=== PATIENT | female | born 1935 | race Caucasian/White ===

== ENCOUNTER 2016-06-24 16:33 | Emergency (ER) | payer MEDICARE ==
[~2016-06-24] VITALS: Ht 168.9 cm; Wt 81.2 kg
[~2016-06-24 16:33] MED LIST: ANAS1TAB3 PO; GABA-585 PO; LISI-334 PO; MULT-18 PO; OMEP20CA9 PO; PRAM0.255 PO; TRAZ150T49 PO; gabapentin; lisinopril; ondansetron; plaquenil PO
--- NOTE | 2016-06-24 16:47 | RAD ---
CT head without contrast History: Code stroke, weakness, facial droopiness. Comparison: None. Procedure: Axial images are obtained of the head from the skull base through the vertex without IV contrast. Findings: The ventricles and sulci are normal for the patient's age. No mass-effect, intracranial mass, midline shift, hemorrhage or obvious acute infarction is identified. Basilar cisterns are patent. Bone windows demonstrate no significant calvarial abnormality. The visualized paranasal sinuses appear clear. Mild bilateral periventricular white matter hypodensities likely chronic small vessel ischemic disease Impression: 1. No acute intracranial process. ER was called at time of dictation at 4:40 PM.. PQRS Compliance Statement: One or more of the following individualized dose reduction techniques were utilized for this examination: 1. Automated exposure control 2. Adjustment of the mA and/or kV according to patient size 3. Use of iterative reconstruction technique
--- NOTE | 2016-06-24 16:49 | RAD ---
EXAM: CHEST 1 VIEW History: Arrhythmia, code stroke COMPARISON: 08/01/2014 TECHNIQUE: Single portable radiograph of the chest FINDINGS: The cardiac silhouette is unremarkable. The lungs are clear bilaterally. The costophrenic sulci are clear and well demarcated. IMPRESSION: No radiographic evidence of an acute cardiopulmonary process.
--- NOTE | 2016-06-24 16:57 | EKG ---
[address] [address] Test Date: 2016-06-24 Test Time: 16:54:30 Pat Name: HAILE MORAN Department: Room: Gender: F Credentialing Coordinator: : 1935 Requested By: ALDO MAKI Order Number: [id number] Reading MD: Leonard Walton Measurements Intervals [place] Rate: 67 P: 42 WA: 170 QRS: 24 QRSD: 80 T: 51 QT: 380 QTc: 404 Interpretive Statements SINUS RHYTHM Electronically Signed On 06-28-2016 14:18:31 CDT by Leonard Walton
--- NOTE | 2016-06-24 17:10 | ED.ADGEN ---
Past History Past Medical History: Hypertension, Pneumonia Past Surgical History: Appendectomy, Hysterectomy, Knee Replacement, Other Alcohol Use: None Drug Use: None Adult General Chief Complaint Chief Complaint Generally weakness, confusion HPI HPI Patient is a 81-year-old female who presents with generalized weakness, fatigue , and possible left-sided facial droop while at dental office prior to ED arrival and prior to any dental procedure. patient's son drove her to the dental office and states the patient appeared mildly agitated and confused earlier today. She also complaining of weakness and took hydrocodone this morning for chronic back and hip pain. Patient denies headache, change in vision , facial numbness, extremity weakness or loss of sensation. Denies fever chills , nausea vomiting and sweats. no dysuria, urinary frequency urgency.Overall, patient just complains of feeling entire and wants to go home to sleep. Additional history obtained from patient's son and EMS. Review of Systems Review of Systems ROS as per HPI. Current Medications Current Medications Current Medications Medications (Trade) Dose Ordered Sig/Johanna Start Time Stop Time Status Last Admin Dose Admin Aspirin (Aspirin Enteric Coated) 162 mg 1X ONCE 06/24/16 17:15 06/24/16 17:16 DC 06/24/16 17:15 162 MG Allergies Allergies Allergies Coded Allergies Type Severity Reaction Last Updated Verified codeine Allergy Intermediate 08/02/14 Yes Physical Exam Physical Exam Constitutional: Mildly agitated, early fatigued and weak appearing. HENT: Normocephalic, atraumatic, bilateral external ears normal, oropharynx moist, no oral exudates, nose normal. Eyes: PERRLA, EOMI, conjunctiva normal. Neck: Normal range of motion, no tenderness. Cardiovascular:Heart rate regular rhythm, no murmur. Lungs & Thorax: Bilateral breath sounds clear to auscultation. Abdomen: Bowel sounds normal, soft, no tenderness. Skin: Warm, dry, no erythema. Back: No tenderness Extremities: No tenderness. Neurologic: Alert and oriented X 3, subtle left facial droop around mouth, cranial nerves II through XII grossly intact, normal motor function, normal sensory function, no focal deficits noted. Psychologic: Affect normal, judgement normal, mood normal. Current Patient Data Vital Signs Vital Signs Date Time Temp Pulse Resp B/P (MAP) Pulse Ox O2 Delivery O2 Flow Rate FiO2 06/24/16 17:22 76 13 134/71 (92) 94 06/24/16 16:33 97.5 Room Air Lab Results Laboratory Tests Test 06/24/16 17:30 White Blood Count 7.3 x10^3/uL (4.0-11.0) Red Blood Count 3.74 x10^6/uL (3.50-5.40) Hemoglobin 10.8 g/dL (12.0-15.5) L Hematocrit 32.1 % (36.0-47.0) L Mean Corpuscular Volume 86 fL (79-100) Mean Corpuscular Hemoglobin 29 pg (25-35) Mean Corpuscular Hemoglobin Concent 34 g/dL (31-37) Red Cell Distribution Width 15.5 % (11.5-14.5) H Platelet Count 209 x10^3/uL (140-400) Neutrophils (%) (Auto) 56 % (31-73) Lymphocytes (%) (Auto) 27 % (24-48) Monocytes (%) (Auto) 12 % (0-9) H Eosinophils (%) (Auto) 4 % (0-3) H Basophils (%) (Auto) 1 % (0-3) Neutrophils # (Auto) 4.1 x10^3uL (1.8-7.7) Lymphocytes # (Auto) 2.0 x10^3/uL (1.0-4.8) Monocytes # (Auto) 0.9 x10^3/uL (0.0-1.1) Eosinophils # (Auto) 0.3 x10^3/uL (0.0-0.7) Basophils # (Auto) 0.1 x10^3/uL (0.0-0.2) Prothrombin Time 9.9 SEC (9.4-11.4) Prothrombin Time INR 1.0 (0.9-1.1) PTT 24 SEC (23-33) Sodium Level 137 mmol/L (136-145) Potassium Level 4.1 mmol/L (3.5-5.1) Chloride Level 103 mmol/L (98-107) Carbon Dioxide Level 26 mmol/L (21-32) Anion Gap 8 (6-14) Blood Urea Nitrogen 30 mg/dL (7-20) H Creatinine 2.0 mg/dL (0.6-1.0) H Estimated GFR (Cockcroft-Gault) 23.9 BUN/Creatinine Ratio 15 (6-20) Glucose Level 106 mg/dL (70-99) H Calcium Level 8.7 mg/dL (8.5-10.1) Total Bilirubin 0.3 mg/dL (0.2-1.0) Aspartate Amino Transferase (AST) 19 U/L (15-37) Alanine Aminotransferase (ALT) 17 U/L (14-59) Alkaline Phosphatase 73 U/L (46-116) Total Protein 6.8 g/dL (6.4-8.2) Albumin 3.5 g/dL (3.4-5.0) Albumin/Globulin Ratio 1.1 (1.0-1.7) EKG EKG [EKG: Normal sinus rhythm, no acute ST-T wave changes.] Radiology/Procedures Radiology/Procedures [Ct head: nonacute.] Course & Med Decision Making Course & Med Decision Making Pertinent Labs and Imaging studies reviewed. (See chart for details) [NIH stroke score of 1. Patient mainly appears fatigued and mildly agitated in the ED. Diagnosis of stroke is uncertain. Will admit to the hospital service for further observation and treatment.] Final Impression Final Impression 1. Facial droop 2. Generalized weakness Problems: Dragon Disclaimer Dragon Disclaimer This electronic medical record was generated, in whole or in part, using a voice recognition dictation system. ALDO MAKI DO June 24, 2016 17:10
[2016-06-24] MEDS ORDERED: ASPIRIN ENTERIC COATED 81 MG TABLET.DR. PO ONE (17:15)
[2016-06-24 17:57] LABS: BASO # 0.1 x10^3/uL (0.0-0.2); BASO % 1 % (0-3); EOS # 0.3 x10^3/uL (0.0-0.7); EOS % 4 % (0-3); HEMATOCRIT 32.1 % (36.0-47.0); HEMOGLOBIN 10.8 g/dL (12.0-15.5); LYMPH % 27 % (24-48); MEAN CORPUSCULAR HEMOGLOBIN 29 pg (25-35); MEAN CORPUSCULAR HGB CONC 34 g/dL (31-37); MEAN CORPUSCULAR VOLUME 86 fL (79-100); MONO # 0.9 x10^3/uL (0.0-1.1); MONO % 12 % (0-9); NEUT # 4.1 x10^3uL (1.8-7.7); NEUT % 56 % (31-73); PLATELET COUNT 209 x10^3/uL (140-400); RED BLOOD COUNT 3.74 x10^6/uL (3.50-5.40); RED CELL DISTRIBUTION WIDTH 15.5 % (11.5-14.5); WHITE BLOOD COUNT 7.3 x10^3/uL (4.0-11.0)
[2016-06-24 18:05] LABS: ALBUMIN 3.5 g/dL (3.4-5.0); ALBUMIN/GLOBULIN RATIO 1.1 (1.0-1.7); CALCIUM 8.7 mg/dL (8.5-10.1); GFR 23.9; POTASSIUM 4.1 mmol/L (3.5-5.1); TOTAL BILIRUBIN 0.3 mg/dL (0.2-1.0); TOTAL PROTEIN 6.8 g/dL (6.4-8.2)
[2016-06-24 18:55] VITALS: BP 152/79
[2016-06-24] MEDS ORDERED: ACETAMINOPHEN 650 MG/20.3 ML SOLUTION. PO PRN (19:45)
[2016-06-24] MEDS ORDERED: MVI, ADULT NO.4 WITH VIT K 10 ML, FOLIC ACID SYRINGE for ER 1 MG, THIAMINE 100 MG in IV... IV ONE ×4 (20:15)
[2016-06-24] MEDS ORDERED: GABA300C8 PO (20:24)
[2016-06-24] MEDS ORDERED: LISI-334 PO (20:24)
[2016-06-24] MEDS ORDERED: OXYC1TAB7 PO (20:24)
[2016-06-24] MEDS ORDERED: oxyCODONE/APAP 5/325 1 TAB TABLET PO PRN (20:45)
[2016-06-24] MEDS ORDERED: GABAPENTIN 300 MG CAPSULE. PO SCH (21:00)
[2016-06-24] MEDS ORDERED: traZODone 150 MG TABLET. PO SCH (21:00)
[2016-06-24 22:48] VITALS: BP 122/70
[2016-06-25 05:03] LABS: BACTERIA,URINE FEW /HPF (0-FEW); BILIRUBIN,URINE NEG (NEG); CLARITY,URINE CLEAR; COLOR,URINE YELLOW; GLUCOSE,URINE NEG (NEG); NITRITE,URINE NEG (NEG); RBC,URINE 0 /HPF (0-2); SQUAMOUS EPITHELIAL CELL,UR OCC /LPF; UROBILINOGEN,URINE 0.2 mg/dL (0.2 mg/dL)
[2016-06-25 05:49] VITALS: BP 123/76
[2016-06-25 06:20] LABS: CALCIUM 8.5 mg/dL (8.5-10.1); CREATININE 1.5 mg/dL (0.6-1.0); GFR 33.3; POTASSIUM 4.7 mmol/L (3.5-5.1)
[2016-06-25 06:27] LABS: BASO # 0.1 x10^3/uL (0.0-0.2); BASO % 1 % (0-3); EOS # 0.4 x10^3/uL (0.0-0.7); EOS % 6 % (0-3); HEMATOCRIT 31.3 % (36.0-47.0); HEMOGLOBIN 10.4 g/dL (12.0-15.5); LYMPH # 1.8 x10^3/uL (1.0-4.8); LYMPH % 31 % (24-48); MEAN CORPUSCULAR HEMOGLOBIN 29 pg (25-35); MEAN CORPUSCULAR HGB CONC 33 g/dL (31-37); MEAN CORPUSCULAR VOLUME 86 fL (79-100); MONO # 0.8 x10^3/uL (0.0-1.1); MONO % 13 % (0-9); NEUT # 2.9 x10^3uL (1.8-7.7); NEUT % 49 % (31-73); PLATELET COUNT 189 x10^3/uL (140-400); RED BLOOD COUNT 3.63 x10^6/uL (3.50-5.40); RED CELL DISTRIBUTION WIDTH 14.8 % (11.5-14.5); WHITE BLOOD COUNT 5.9 x10^3/uL (4.0-11.0)
[2016-06-25] MEDS ORDERED: PANTOPRAZOLE 40 MG TABLET. PO SCH (07:30)
[2016-06-25] MEDS ORDERED: ASPIRIN ENTERIC COATED 325 MG TABLET.DR. PO SCH (08:00)
[2016-06-25] MEDS ORDERED: ANASTROZOLE 1 MG TABLET PO SCH (09:00)
[2016-06-25] MEDS ORDERED: GABAPENTIN 100 MG CAPSULE. PO SCH (09:00)
[2016-06-25] MEDS ORDERED: LISINOPRIL 20 MG TABLET PO SCH (09:00)
[2016-06-25 11:08] VITALS: BP 126/69
--- NOTE | 2016-06-25 11:40 | HP ---
ADMIT DATE: 06/25/2016 REASON FOR ADMISSION: Stroke-like symptoms. HISTORY OF PRESENT ILLNESS: An 81-year-old female who stated that yesterday she did not feel very well. She was very tired. She did have a dental appointment and decided to go to it. Her son drove her there. She still felt tired and the dentist decided not to proceed with any dental procedure. Some question whether there was some left facial drooping at that time. Her son took her out to the car. In the car, she felt like she could not breathe. Staff came from the dental office, gave her some oxygen and she was transported to the hospital. PAST MEDICAL HISTORY: Breast cancer, she is a 5-year survivor; chronic back pain; arthritis; hypertension; GERD. PAST SURGICAL HISTORY: Two surgeries on her back, breast cancer surgery. FAMILY HISTORY: Mother had heart issues, sister has stomach issues. SOCIAL HISTORY: The patient is a . She smoked for a few years starting at age 20 and then quit. Likes to drink beer with her grandchildren, but not to excess. REVIEW OF SYSTEMS: Transient left facial numbness and weakness. Denies any visual problems, fever, sore throat, urinary pain or dysuria, bowel issues. Just fatigue and some low blood pressures at home. ALLERGIES: Codeine. HOME MEDICATIONS: Reviewed and are available on the MAR. OBJECTIVE: VITAL SIGNS: Blood pressure , pulse 70, respirations 20, temperature is 97.8, pulse ox 95% on room air. Height 66.5 inches, weight 179 pounds. GENERAL: Pleasant 81-year-old in no acute distress. HEENT: Her hearing is normal. Her pupils are equal, round, reactive to light. Extraocular muscles were intact. Her nose is patent. Throat was clear. Tongue was midline. NECK: Supple, without adenopathy. There are no carotid bruits. Thyroid is not enlarged. LUNGS: Clear to auscultation. CARDIOVASCULAR: Regular rhythm and rate. ABDOMEN: Soft, nontender. EXTREMITIES: Without edema. NEUROLOGIC: Mental status: She is alert and oriented. Cranial nerves are intact. There is no facial numbness or drooping. No hemianopsia. Kqqzbp-ci-[id number] is intact. Reflexes were 2+/4. Order Runner slightly weaker on the left, but she is right handed. Motor strength is good. LABORATORY DATA: Hemoglobin is 10.4, hematocrit 31.3. Chemistry: BUN was 30, creatinine 2.0 and now 1.5. Urinalysis, this was after hydration; however, specific gravity less than 1.005, 1-4 white cells, trace leukocyte esterase. CT of the head is negative, no intracranial process. ASSESSMENT: 1. Stroke-like symptoms, which appears to have resolved. 2. Hypertension with hypotension, decreased his lisinopril from 40-20. 3. Normochromic normocytic anemia. This will need to be worked up as an outpatient. 4. History of breast cancer, 5 years survivor. 5. Acute kidney injury secondary to volume depletion. This has improved with hydration. PLAN: Neurological consult. Started on aspirin. Carotid Dopplers. PT, OT. GORDON RODRIGUES DO DR: JEANNINE/brenda JOB#: [id number] / [id number]
[2016-06-25 13:58] LABS: THYROID STIM HORMONE (TSH) 3.56 uIU/mL (0.358-3.740)
--- NOTE | 2016-06-25 14:21 | HP ---
ADMIT DATE: 06/25/2016 ADDENDUM About one hour prior to going to the dentist, she had taken 2000 mg of amoxicillin and 1 hour prior to the sensation in the car where she could not breathe and apparently her oxygen may have been a little low. She had felt that numbness on her left side of her face, so possibly this could have been reaction to the amoxicillin. GORDON RODRIGUES DO DR: JEANNINE/brenda JOB#: [id number] / [id number]
--- NOTE | 2016-06-25 14:28 | RAD ---
Exam performed: Carotid Doppler. Clinical indication: Weakness, hypertension Comparison: None available Technique: Grayscale, color-flow 2-D, spectral waveform analysis of the carotid arterial system was performed. Findings: There is minimal intimal thickening and soft atherosclerotic plaque within both carotid bulbs extending into the internal carotid artery bilaterally. Doppler interrogation reveals normal waveforms and velocities as follows . Peak systolic velocity within the right common carotid artery ranges from 62-78 cm/sec whereas on the left ranges from 69-80 cm/sec . The peak systolic velocity within the right ICA ranges from 59-85 cm/sec whereas on the left ranges from 54-135 cm/sec. The ICA to CCA ratio on the right ranges from 0.83-1.81whereas on the left ranges from 0.68-1.69. There is antegrade flow in both vertebral arteries. Impression: 1.Mild plaquing involving both carotid systems without any flow-limiting stenosis. Note: Stenosis calculations for CT, MR and conventional angiography are based upon determination of the distal ICA diameter in accordance with the NASCET methodology. Stenosis calculations for doppler studies are derived from validated velocity criteria which are known to correlate with NASCET methodology of determining stenosis. Ultrasound
[2016-06-25] MEDS ORDERED: ATOR20TA PO (15:28)
[2016-06-25 15:38] VITALS: BP 128/76
[2016-06-25] MEDS ORDERED: ASPI-630 PO (16:13)
[2016-06-25] MEDS ORDERED: ATORVASTATIN CALCIUM 20 MG TABLET PO SCH (21:00)
[2016-06-25] MEDS ORDERED: PRAMIPEXOLE 0.25 MG TABLET. PO SCH (21:00)
[2016-06-26] MEDS ORDERED: LISINOPRIL 20 MG TABLET PO SCH (09:00)
--- NOTE | 2016-06-27 19:39 | DS ---
DATE OF DISCHARGE: 06/25/2016 HOSPITAL COURSE: This is an 81-year-old female who was admitted with possible stroke-like symptoms. In reality these symptoms occurred with the transient acute shortness of breath and chest pain and a left facial numbness after taking 2 grams of amoxicillin an hour prior going to the dentist. When she arrived on the floor basically all of her symptoms had resolved. She was also seen by Dr. Ferro. DISCHARGE DIAGNOSES: 1. Reaction to medication. 2. Left facial weakness. 3. Hypertension. 4. Normochromic normocytic anemia. 5. History of breast cancer. 6. Acute kidney injury secondary to volume depletion, which resolved. DISPOSITION: She will follow up with her own doctor as an outpatient. GORDON RODRIGUES DO DR: JEANNINE/brenda JOB#: [id number] / [id number]
== END 2016-06-25 16:16 | disposition home or self-care (01) ==
LOC: ER 16:33 → 1 SOUTH 17:48
PROVIDERS: ADMIT Family Medicine; ATTEND Family Medicine
DX: I95.2 Hypotension due to drugs (principal); I10 Essential (primary) hypertension; D64.9 Anemia, unspecified; Z85.3 Personal history of malignant neoplasm of breast; E86.9 Volume depletion, unspecified; N17.9 Acute kidney failure, unspecified; K21.9 Gastro-esophageal reflux disease without esophagitis; M19.90 Unspecified osteoarthritis, unspecified site; Z90.49 Acquired absence of other specified parts of digestive tract; Z96.659 Presence of unspecified artificial knee joint
CPT/HCPCS: 36415; 70450; 71010; 80048; 80053; 80061; 81001; 84443; 85027; 85610; 85730; 87086; 93005; 93880; 96374; 97162; 97166; 99285; G0378; G8978; G8979; G0379; J7030

== ENCOUNTER → 2017-03-17 | Outpatient (CLI) | payer MEDICARE ==
[~2017-03-17] MED LIST changes: +ASPI-630 PO; +ATOR20TA PO; +BUPIVACAINE MPF 0.25% 10 ML VIAL. ONE; +DEXAMETHASONE SOD PHOS 4 MG/ML VIAL ONE; +GABA300C8 PO; +IOHEXOL 300 MG/ML 50 ML VIAL. ONE; +LIDOCAINE 1% PF 30 ML VIAL. ONE; +OXYC1TAB7 PO
== END | disposition home or self-care (01) ==
LOC: SURG 09:24
PROVIDERS: ATTEND Anesthesiology Pain Medicine
DX: M54.16 Radiculopathy, lumbar region (principal); K21.9 Gastro-esophageal reflux disease without esophagitis; M19.90 Unspecified osteoarthritis, unspecified site; F32.9 Major depressive disorder, single episode, unspecified; Z87.39 Personal history of other diseases of the musculoskeletal system and connective tissue; Z90.710 Acquired absence of both cervix and uterus; Z87.440 Personal history of urinary (tract) infections; Z87.01 Personal history of pneumonia (recurrent); Z88.6 Allergy status to analgesic agent
CPT/HCPCS: 64483; 99213; J1100; J2001; J3490; Q9967

== ENCOUNTER 2017-04-03 01:22 | Inpatient (IN) | payer MEDICARE ==
[2017-04-03] VITALS (8 sets, daily range): BP systolic 93–184; BP diastolic 53–96
[~2017-04-03] VITALS: Ht 168.9 cm; Wt 82.6 kg
[~2017-04-03 01:22] MED LIST changes: -BUPIVACAINE MPF 0.25% 10 ML VIAL. ONE; -DEXAMETHASONE SOD PHOS 4 MG/ML VIAL ONE; -IOHEXOL 300 MG/ML 50 ML VIAL. ONE; -LIDOCAINE 1% PF 30 ML VIAL. ONE
[2017-04-03] MEDS ORDERED: IPRATRPIUM/ALBUTEROL 0.5/2.5MG 3 ML NEBU. NEB ONE (01:45)
[2017-04-03] MEDS ORDERED: ONDANSETRON PF 4 MG/2 ML VIAL. IV ONE (02:00)
--- NOTE | 2017-04-03 02:05 | PHYS DOC ---
General Chief Complaint: COUGH Stated Complaint: SOA Time Seen by MD: 01:25 Source: patient Exam Limitations: no limitations Problems: History of Present Illness Initial Comments 82-year-old female to ED with cough and shortness of breath. Patient complains of cough 2 days, states symptoms worsened severely this afternoon. She is complaining of chills and sweats difficulty breathing had one episode of emesis in the emergency department. 89% on room air increased to 95% on 2 L she has history of breast cancer survivor 5 years. Timing/Duration: other Severity: severe Modifying Factors: worse with movement, improves with other Associated Symptoms: cough, diaphoresis, fever/chills, headaches, malaise, nausea/vomiting, shortness of breath, other Allergies: Coded Allergies: codeine (Verified Allergy, Intermediate, 08/02/14) Past Medical History Medical History: other (breast cancer 5 years, back pain, hypertension, GERD breast cancer 5 years, back pain, hypertension, GERD) Surgical History: other (2 back surgeries and a breast biopsy) Social History Smoker: quit greater than 1 year Alcohol: occasionally Drugs: none Review of Systems Constitutional: see HPI Respiratory: see HPI Cardiovascular: chest pain, denies palpitations, denies syncope Gastrointestinal: see HPI, denies abdominal pain, denies diarrhea Genitourinary: denies dysuria, denies frequency, denies hematuria Musculoskeletal: muscle pain, denies neck pain Psychiatric/Neurological: headache, denies paresthesia, denies weakness Hematologic/Lymphatic: denies blood clots, denies easy bleeding, denies easy bruising Physical Exam General Appearance: moderate distress (respiratory) Ear, Nose, Throat: hearing grossly normal, normal ENT inspection (dry membranes ), normal pharynx Neck: non-tender, supple Respiratory: other (wheezes and decreased BS b/l, respiratory distress) Cardiovascular: normal peripheral pulses, regular rate, rhythm Gastrointestinal: non tender, soft Extremities: non-tender, no calf tenderness Neurologic/Psychiatric: timber surveyor II-XII nml as tested, no motor/sensory deficits, alert, oriented x 3 Orders, Labs, Meds EKG: sinus tachycardia 104 bpm, no ST segment elevation. Interpreted by me. PATIENT: HAILE MORAN ACCOUNT: [id number] : 1935 LOCATION: ER AGE: 82 SEX: F EXAM STATUS: REG ER ORD. PHYSICIAN: GEETHA MOELLER DO REASON: SOB, h/o breast CA PROCEDURE: CT CHEST WO CONTRAST CT CHEST WO CONTRAST dated 04/03/2017 2:39 AM Indication: Shortness of breath, history of breast cancerSOB, hx of right side breast cancer. Comparison: No comparison is available. Technique: Contiguous axial imaging of the chest performed without the administration of intravenous contrast. One or more of the following individualized dose reduction techniques were utilized for this examination: 1. Automated exposure control 2. Adjustment of the mA and/or kV according to patient size 3. Use of iterative reconstruction technique Findings: Heart size mildly enlarged. No pericardial effusion. Enlarged precarinal lymph node measures 1.1 cm short axis. There are also borderline enlarged right paratracheal lymph nodes measuring up to 1.1 cm short axis. Mild fullness of the bilateral hilum and subcarinal region. No axillary adenopathy. Thyroid gland is unremarkable. Central airways are patent. Mild diffuse bronchial wall thickening. There are 3 noncalcified pulmonary nodules in the right lower lobe on images 54, 58 and 65 that measure up to 5 mm in size each. Patchy groundglass opacity within the bilateral lower lobes, right upper lobe. Small bilateral pleural effusions. Limited images of upper abdomen unremarkable. No acute bony abnormality. Multilevel spondylosis. IMPRESSION: 1. Small noncalcified pulmonary nodules in the right lower lobe, indeterminate. Given the history of breast cancer, metastatic disease cannot be excluded. Follow-up imaging in 3-6 months recommended to ensure stability. 2. Diffuse bronchial wall thickening with patchy groundglass opacity at both lung bases, nonspecific. Consider acute or chronic bronchial inflammatory process and/or mild edema. 3. Mild mediastinal lymphadenopathy, nonspecific. 4. Small bilateral pleural effusions. Electronically signed by: Jonatan Bazan MD (04/03/2017 3:13 AM) [facility] DICTATED AND SIGNED BY: JONATAN BAZAN MD DATE: 04/03/17 0307 CC: MARGI RIVERA MD; GEETHA MOELLER DO ~ Influenza B positive other labs unremarkable Duoneb, tylenol, tamiflu, zofran given in ED. Patient is agreeable to inpatient admission, her PCP Dr Rivera 033: Patient discussed with Dr Ewing who accepts ICU/respiratory isolation admission IMPRESSIONS: Respiratory distress Influenza B Breast cancer Departure Time of Disposition: 03:46 Condition: IMPROVED GEETHA MOELLER DO Apr 03, 2017 02:05
[2017-04-03 02:07] LABS: BASO # 0.1 x10^3/uL (0.0-0.2); BASO % 1 % (0-3); EOS # 0.2 x10^3/uL (0.0-0.7); EOS % 3 % (0-3); HEMATOCRIT 35.4 % (36.0-47.0); HEMOGLOBIN 11.6 g/dL (12.0-15.5); LYMPH # 1.4 x10^3/uL (1.0-4.8); LYMPH % 21 % (24-48); MEAN CORPUSCULAR HEMOGLOBIN 29 pg (25-35); MEAN CORPUSCULAR HGB CONC 33 g/dL (31-37); MEAN CORPUSCULAR VOLUME 87 fL (79-100); MONO # 0.5 x10^3/uL (0.0-1.1); MONO % 7 % (0-9); NEUT # 4.6 x10^3uL (1.8-7.7); NEUT % 68 % (31-73); PLATELET COUNT 185 x10^3/uL (140-400); RED BLOOD COUNT 4.06 x10^6/uL (3.50-5.40); RED CELL DISTRIBUTION WIDTH 16.2 % (11.5-14.5); WHITE BLOOD COUNT 6.8 x10^3/uL (4.0-11.0)
[2017-04-03 02:20] LABS: BACTERIA,URINE 0 /HPF (0-FEW); BILIRUBIN,URINE NEG (NEG); CLARITY,URINE CLEAR; COLOR,URINE YELLOW; GLUCOSE,URINE NEG (NEG); NITRITE,URINE NEG (NEG); RBC,URINE 0 /HPF (0-2); UROBILINOGEN,URINE 0.2 mg/dL (0.2 mg/dL); WBC,URINE 0 /HPF (0-4)
[2017-04-03 02:49] LABS: ALBUMIN 3.5 g/dL (3.4-5.0); ALK PHOS 94 U/L (46-116); ALT (SGPT) < 6 U/L (14-59); ANION GAP 8 (6-14); AST (SGOT) 27 U/L (15-37); BLOOD UREA NITROGEN 18 mg/dL (7-20); BUN/CREATININE RATIO 11 (6-20); CALCIUM 8.6 mg/dL (8.5-10.1); CARBON DIOXIDE 29 mmol/L (21-32); CHLORIDE 104 mmol/L (98-107); CREATININE 1.6 mg/dL (0.6-1.0); GFR 30.9; GLUCOSE 106 mg/dL (70-99); LIPASE 163 U/L (73-393); POTASSIUM 3.9 mmol/L (3.5-5.1); SODIUM 141 mmol/L (136-145); TOTAL BILIRUBIN 0.3 mg/dL (0.2-1.0)
--- NOTE | 2017-04-03 03:17 | RAD ---
CT CHEST WO CONTRAST dated 04/03/2017 2:39 AM Indication: Shortness of breath, history of breast cancerSOB, hx of right side breast cancer. Comparison: No comparison is available. Technique: Contiguous axial imaging of the chest performed without the administration of intravenous contrast. One or more of the following individualized dose reduction techniques were utilized for this examination: 1. Automated exposure control 2. Adjustment of the mA and/or kV according to patient size 3. Use of iterative reconstruction technique Findings: Heart size mildly enlarged. No pericardial effusion. Enlarged precarinal lymph node measures 1.1 cm short axis. There are also borderline enlarged right paratracheal lymph nodes measuring up to 1.1 cm short axis. Mild fullness of the bilateral hilum and subcarinal region. No axillary adenopathy. Thyroid gland is unremarkable. Central airways are patent. Mild diffuse bronchial wall thickening. There are 3 noncalcified pulmonary nodules in the right lower lobe on images 54, 58 and 65 that measure up to 5 mm in size each. Patchy groundglass opacity within the bilateral lower lobes, right upper lobe. Small bilateral pleural effusions. Limited images of upper abdomen unremarkable. No acute bony abnormality. Multilevel spondylosis. IMPRESSION: 1. Small noncalcified pulmonary nodules in the right lower lobe, indeterminate. Given the history of breast cancer, metastatic disease cannot be excluded. Follow-up imaging in 3-6 months recommended to ensure stability. 2. Diffuse bronchial wall thickening with patchy groundglass opacity at both lung bases, nonspecific. Consider acute or chronic bronchial inflammatory process and/or mild edema. 3. Mild mediastinal lymphadenopathy, nonspecific. 4. Small bilateral pleural effusions. Electronically signed by: Jonatan Bazan MD (04/03/2017 3:13 AM) [facility]
[2017-04-03 03:24] LABS: INFLUENZA A PATIENT NEGATIVE (NEGATIVE); INFLUENZA B PATIENT POSITIVE (NEGATIVE)
[2017-04-03] MEDS ORDERED: methylPREDNISolone SOD SUCC PF 125 MG/2 ML VIAL. IV ONE (03:30)
[2017-04-03] MEDS ORDERED: ACETAMINOPHEN 325 MG TABLET PO PRN (03:45)
[2017-04-03] MEDS ORDERED: ACETAMINOPHEN 325 MG TABLET PO ONE (03:45)
[2017-04-03] MEDS ORDERED: ONDANSETRON PF 4 MG/2 ML VIAL. IV PRN (03:45)
[2017-04-03] MEDS ORDERED: OSELTAMIVIR 75 MG CAPSULE PO ONE (03:45)
[2017-04-03] MEDS: IPRATRPIUM/ALBUTEROL 0.5/2.5MG 3 ML NEBU. NEB SCH ×4 (05:37→21:15)
[2017-04-03] MEDS ORDERED: ALBUTEROL SULFATE 2.5 MG/3 ML NEBU. NEB PRN (05:45)
[2017-04-03] MEDS: OSELTAMIVIR 75 MG CAPSULE PO SCH (09:00)
[2017-04-03] MEDS: ENOXAPARIN 30 MG/0.3 ML DISP.SYRIN. SQ SCH (09:00)
--- NOTE | 2017-04-03 09:11 | RAD ---
Indication: Fever, hypoxia. History of right-sided breast cancer. Technique: Portable AP upright chest x-ray Comparison: Previous study from 06/24/2016. Findings: Heart is normal in size. Prominent interstitial opacities are seen in the right lower lung zone. There are scattered areas of subsegmental atelectasis. No pneumothorax or effusion. Visualized bony thorax within normal limits. Impression: Right lower lung zone opacities may suggest pneumonia with subsegmental atelectasis. Although, given history of right-sided breast cancer, lymphangitic carcinomatosis not ruled out. Follow-up imaging after medical therapy recommended to ensure resolution.
[2017-04-03] MEDS ORDERED: ANASTROZOLE 1 MG TABLET PO SCH (09:30)
[2017-04-03] MEDS ORDERED: GABAPENTIN 100 MG CAPSULE. PO SCH (09:30)
[2017-04-03] MEDS: LISINOPRIL 5 MG TABLET. PO SCH (09:30)
[2017-04-03] MEDS: PANTOPRAZOLE 40 MG TABLET. PO SCH (09:45)
[2017-04-03] MEDS: GABAPENTIN 300 MG CAPSULE. PO SCH ×2 (09:45→20:40)
[2017-04-03] MEDS: ASPIRIN 81 MG TAB.CHEW PO SCH (09:46)
--- NOTE | 2017-04-03 10:30 | PDOC1 ---
History of Present Illness Reason for Visit: COugh, weakness History of Present Illness Pt states she started feeling poorly about Weds or this week. She had a cough and just felt weak. Says yesterday she was "heaving" with the cough and had a low-grade fever of 100. In the ER she was diagnosed with Influenza B. She has a hx of breast cancer treated w/ partial mastectomy, radiation, and Anastrazole. She is no longer receiving treatment, and felt to be in remission. She also has a long-standing history of chronic back pain and sees Dr. Geneva Rhodes for pain mgmt. She takes gabapentin daily and oxycodone PRN. She reports her grandson and /baby are coming to visit Tuesday and are supposed to stay with her. She states she feels better than she did yesterday. She denies chest pain or diarrhea. Chief Complaint: COUGH Allergies: Coded Allergies: codeine (Verified Allergy, Intermediate, 08/02/14) Past Medical History Cardiac: HTN, hyperipidemia Pulmonary: COPD Heme/Onc: Cancer (Breast (RIght)) Musculoskeletal: low back pain (Chronic), Osteoarthritis Past Surgical History: Appendectomy, Breast Biopsy, Total knee replacement (x 2 ), Hysterectomy, Other (Back surgery x 2, implanted pain device and subsequent removal) Family History: No pertinent hx Past Social History Smoke: No Alcohol: none Drugs: None Lives: Alone Review of Systems Review Of Systems Fourteen system , review of systems has been reviewed. See HPI for pertinent positives and negative responses, other shultz all other systems are negative, non pertinent or non contributory Constitutional: Fever, Chills, Malaise Eyes: Yes: Blurry vision (chronic, is supposed to have eyelid surgery soon due to droopy eyelids), No: Eye Pain, Loss of vision ENT: No: Ear pain, Nose pain, Mouth pain, Throat pain Respiratory: YES: Cough, Shortness of breath, No: Hemoptysis, Pleuritic Pain Cardiovascular: No: Chest Pain, Palpitations, Orthopnea, Paroxysmal Noc. Dyspnea, Edema, Lt Headedness Gastrointestinal: No: Nausea, Vomiting, Abdominal Pain, Diarrhea, Constipation , Melena, Hematochezia Genitourinary: No: Dysuria, Henaturia Musculoskeletal: No: Muscle Pain, Muscular Weakness SKIN: YES: Warm, Dry, No Rashes Neurological: No: Confusion, Dizziness, Headaches, Memory Loss, Numbness/ Tingling, Seizures, Speech Problems, Tremors Allergies: Coded Allergies: codeine (Verified Allergy, Intermediate, 08/02/14) Medications Current Medications Albuterol/ Ipratropium (Duoneb) 3 ml 1X ONCE NEB Last administered on at 01:53; Start 04/03/17 at 01:45; Stop 04/03/17 at 01:56; Status DC Ondansetron HCl (Zofran) 8 mg 1X ONCE IV Last administered on 04/03/17at 01:51 ; Start 04/03/17 at 02:00; Stop 04/03/17 at 02:01; Status DC Methylprednisolone Sodium Succinate (SOLU-Medrol 125MG VIAL) 125 mg 1X ONCE IV ; Start 04/03/17 at 03:30; Stop 04/03/17 at 03:31; Status DC Oseltamivir Phosphate (Tamiflu) 75 mg 1X ONCE PO Last administered on at 03:45; Start 04/03/17 at 03:45; Stop 04/03/17 at 04:20; Status DC Acetaminophen (Tylenol) 650 mg 1X ONCE PO Last administered on 04/03/17at 03:45 ; Start 04/03/17 at 03:45; Stop 04/03/17 at 04:19; Status DC Ondansetron HCl (Zofran) 4 mg PRN Q4HRS PRN IV NAUSEA/VOMITING; Start 04/03/17 at 03:45; Stop 04/04/17 at 03:44 Acetaminophen (Tylenol) 650 mg PRN Q4HRS PRN PO FEVER Last administered on 04/03at 09:00; Start 04/03/17 at 03:45; Stop 04/04/17 at 03:44 Albuterol/ Ipratropium (Duoneb) 3 ml RTQID NEB Last administered on 04/03/17at 05:37; Start 04/03/17 at 08:00; Stop 04/04/17 at 07:59 Oseltamivir Phosphate (Tamiflu) 75 mg Q24H PO Last administered on 04/03/17at 09 :00; Start 04/03/17 at 09:00; Stop 04/08/17 at 08:59 Enoxaparin Sodium (Lovenox) 30 mg DAILY SQ Last administered on 04/03/17at 09:00 ; Start 04/03/17 at 09:00 Albuterol Sulfate (Ventolin) 2.5 mg PRN Q2HR PRN NEB SHORTNESS OF BREATH; Start 04/03/17 at 05:45 Anastrozole (Arimidex) 1 mg DAILY PO ; Start 04/03/17 at 09:30 Aspirin (Children'S Aspirin) 81 mg DAILY PO Last administered on 04/03/17at 09: 46; Start 04/03/17 at 09:30 Atorvastatin Calcium (Lipitor) 20 mg QHS PO ; Start 04/03/17 at 21:00 Gabapentin (Neurontin) 200 mg DAILY PO ; Start 04/03/17 at 09:30; Stop 04/03/17 at 09:48; Status DC Gabapentin (Neurontin) 300 mg BID PO Last administered on 04/03/17at 09:45; Start 04/03/17 at 09:30 Lisinopril (Prinivil) 5 mg DAILY PO ; Start 04/03/17 at 09:30 Oxycodone/ Acetaminophen (Percocet 5/325) 1 tab PRN Q6HRS PRN PO PAIN; Start at 09:15 Pramipexole Dihydrochloride (miraPEX) 0.5 mg QHS PO ; Start 04/03/17 at 21:00 Trazodone HCl (Desyrel) 150 mg QHS PO ; Start 04/03/17 at 21:00 Pantoprazole Sodium (Protonix) 40 mg DAILYAC PO Last administered on 04/03/17at 09:45; Start 04/03/17 at 09:30 Active Scripts Active Lipitor (Atorvastatin Calcium) 20 Mg Tablet 20 Mg PO QHS Reported Aspirin 81 Mg Tab.chew 81 Mg PO DAILY Gabapentin 300 Mg Capsule 300 Mg PO BID Oxycodone-Acetaminophen 5-325 (Oxycodone Hcl/Acetaminophen) 1 Each Tablet 1 Tab PO PRN Q6HRS Lisinopril 20 Mg Tablet 5 Mg PO QHS Trazodone Hcl 150 Mg Tablet 1 Tab PO QHS Mirapex (Pramipexole Di-Hcl) 0.25 Mg Tablet 0.5 Mg PO HS Omeprazole 20 Mg Capsule.dr 40 Mg PO DAILY Daily Vitamin (Multivitamin) 1 Each Tablet 1 Each PO Exam Vital Signs Vital Signs Date Time Temp Pulse Resp B/P (MAP) Pulse Ox O2 Delivery O2 Flow Rate FiO2 04/03/17 09:13 99.1 95 20 138/75 (96) 96 Nasal Cannula 0.5 General Appearance: Alert, Oriented X3, Cooperative, No acute distress HEENT: Atraumatic, PERRLA, EOMI, Mucous membr. moist/pink, Other (Neck supple, no JVD< no LAD, no carotid bruits) Respiratory: Other (COarse breath sounds in both lung bases. NO wheezes or rales. Resp effort is normal and symmetric.) Heart: Regular rate, Normal S1, Normal S2, No murmurs Abdominal: Normal bowel sounds, Soft, No tenderness, No hepatospenomegaly, No masses Extremities: No edema (Trace), Normal pulses, No tenderness/swelling Skin: No rashes, No breakdown Neuro: Normal speech, Strength at 5/5 X4 ext, Normal tone, Sensation intact, Cranial nerves 3-12 NL, Reflexes 2+ Psych/Mental Status: Mental status NL, Mood NL Assessment/Plan Assessment/Plan 1. Hypoxemia due to Influenza B respiratory infection: Pt on isolation, treated w/ O2 and Tamiflu. Improving. Monitor for signs of pneumonia. Fever curve mild at this point. 2. CKD: Baseline creat unknown, currently 1.6. Will repeat in AM. 3. Breast cancer, hx of: CT chest showed some tiny nodules w/ mild LAD. Could be reactive w/ granulomas, but recommend short-term f/u CT in 3 months to clarify stability. Pt and her son v/u. Pt reports she has not had a scan in the past few years. 4. Chronic low back pain: Continue home medications. 5. DVT proph: Lovenox. 6. Disp: Expect 2 MN stay due to complexity and severity of illness. Will downgrade to non-ICU status today. Pt advised that she could shed the virus several days after resolution of symptoms, and she should consider making other arrangements for her grandson and family to stay. COURSE Allergies Coded Allergies Type Severity Reaction Last Updated Verified codeine Allergy Intermediate 08/02/14 Yes Laboratory Tests Test 04/03/17 01:40 04/03/17 02:21 04/03/17 06:43 White Blood Count 6.8 x10^3/uL (4.0-11.0) Red Blood Count 4.06 x10^6/uL (3.50-5.40) Hemoglobin 11.6 g/dL (12.0-15.5) Hematocrit 35.4 % (36.0-47.0) Mean Corpuscular Volume 87 fL (79-100) Mean Corpuscular Hemoglobin 29 pg (25-35) Mean Corpuscular Hemoglobin Concent 33 g/dL (31-37) Red Cell Distribution Width 16.2 % (11.5-14.5) Platelet Count 185 x10^3/uL (140-400) Neutrophils (%) (Auto) 68 % (31-73) Lymphocytes (%) (Auto) 21 % (24-48) Monocytes (%) (Auto) 7 % (0-9) Eosinophils (%) (Auto) 3 % (0-3) Basophils (%) (Auto) 1 % (0-3) Neutrophils # (Auto) 4.6 x10^3uL (1.8-7.7) Lymphocytes # (Auto) 1.4 x10^3/uL (1.0-4.8) Monocytes # (Auto) 0.5 x10^3/uL (0.0-1.1) Eosinophils # (Auto) 0.2 x10^3/uL (0.0-0.7) Basophils # (Auto) 0.1 x10^3/uL (0.0-0.2) Urine Collection Type Void Urine Color Yellow Urine Clarity Clear Urine pH 6.0 Urine Specific [place] 1.020 Urine Protein Neg (NEG-TRACE) Urine Glucose (UA) Neg mg/dL (NEG) Urine Ketones (Stick) Neg mg/dL (NEG) Urine Blood Trace (NEG) Urine Nitrite Neg (NEG) Urine Bilirubin Neg (NEG) Urine Urobilinogen Dipstick 0.2 mg/dL (0.2 mg/dL) Urine Leukocyte Esterase Neg (NEG) Urine RBC 0 /HPF (0-2) Urine WBC 0 /HPF (0-4) Urine Squamous Epithelial Cells None /LPF Urine Bacteria 0 /HPF (0-FEW) Sodium Level 141 mmol/L (136-145) Potassium Level 3.9 mmol/L (3.5-5.1) Chloride Level 104 mmol/L (98-107) Carbon Dioxide Level 29 mmol/L (21-32) Anion Gap 8 (6-14) Blood Urea Nitrogen 18 mg/dL (7-20) Creatinine 1.6 mg/dL (0.6-1.0) Estimated GFR (Cockcroft-Gault) 30.9 BUN/Creatinine Ratio 11 (6-20) Glucose Level 106 mg/dL (70-99) Calcium Level 8.6 mg/dL (8.5-10.1) Total Bilirubin 0.3 mg/dL (0.2-1.0) Aspartate Amino Transf (AST/SGOT) 27 U/L (15-37) Alanine Aminotransferase (ALT/SGPT) < 6 U/L (14-59) Alkaline Phosphatase 94 U/L (46-116) Creatine Kinase 49 U/L (26-192) Troponin I Quantitative < 0.017 ng/mL (0-0.055) 0.020 ng/mL (0-0.055) Total Protein 7.0 g/dL (6.4-8.2) Albumin 3.5 g/dL (3.4-5.0) Albumin/Globulin Ratio 1.0 (1.0-1.7) Lipase 163 U/L (73-393) Influenza Type A (Rapid) Negative (NEGATIVE) Influenza Type B (Rapid) Positive (NEGATIVE) UR-Zot-R-Type Natriuretic Peptide 1782 pg/mL (0-449) Current Medications Medications (Trade) Dose Ordered Sig/Johanna Route PRN Reason Start Time Stop Time Status Last Admin Dose Admin Albuterol/ Ipratropium (Duoneb) 3 ml 1X ONCE NEB 04/03/17 01:45 04/03/17 01:56 DC 04/03/17 01:53 Ondansetron HCl (Zofran) 8 mg 1X ONCE IV 04/03/17 02:00 04/03/17 02:01 DC 04/03/17 01:51 Methylprednisolone Sodium Succinate (SOLU-Medrol 125MG VIAL) 125 mg 1X ONCE IV 04/03/17 03:30 04/03/17 03:31 DC Oseltamivir Phosphate (Tamiflu) 75 mg 1X ONCE PO 04/03/17 03:45 04/03/17 04:20 DC 04/03/17 03:45 Acetaminophen (Tylenol) 650 mg 1X ONCE PO 04/03/17 03:45 04/03/17 04:19 DC 04/03/17 03:45 Ondansetron HCl (Zofran) 4 mg PRN Q4HRS PRN IV NAUSEA/VOMITING 04/03/17 03:45 04/04/17 03:44 Acetaminophen (Tylenol) 650 mg PRN Q4HRS PRN PO FEVER 04/03/17 03:45 04/04/17 03:44 04/03/17 09:00 Albuterol/ Ipratropium (Duoneb) 3 ml RTQID NEB 04/03/17 08:00 04/04/17 07:59 04/03/17 05:37 Oseltamivir Phosphate (Tamiflu) 75 mg Q24H PO 04/03/17 09:00 04/08/17 08:59 04/03/17 09:00 Enoxaparin Sodium (Lovenox) 30 mg DAILY SQ 04/03/17 09:00 04/03/17 09:00 Albuterol Sulfate (Ventolin) 2.5 mg PRN Q2HR PRN NEB SHORTNESS OF BREATH 04/03/17 05:45 Anastrozole (Arimidex) 1 mg DAILY PO 04/03/17 09:30 Aspirin (Children'S Aspirin) 81 mg DAILY PO 04/03/17 09:30 04/03/17 09:46 Atorvastatin Calcium (Lipitor) 20 mg QHS PO 04/03/17 21:00 Gabapentin (Neurontin) 200 mg DAILY PO 04/03/17 09:30 04/03/17 09:48 DC Gabapentin (Neurontin) 300 mg BID PO 04/03/17 09:30 04/03/17 09:45 Lisinopril (Prinivil) 5 mg DAILY PO 04/03/17 09:30 Oxycodone/ Acetaminophen (Percocet 5/325) 1 tab PRN Q6HRS PRN PO PAIN 04/03/17 09:15 Pramipexole Dihydrochloride (miraPEX) 0.5 mg QHS PO 04/03/17 21:00 Trazodone HCl (Desyrel) 150 mg QHS PO 04/03/17 21:00 Pantoprazole Sodium (Protonix) 40 mg DAILYAC PO 04/03/17 09:30 04/03/17 09:45 Vital Signs Date Time Temp Pulse Resp B/P (MAP) Pulse Ox O2 Delivery O2 Flow Rate FiO2 04/03/17 09:13 99.1 95 20 138/75 (96) [address] CHEST WO CONTRAST dated 04/03/2017 2:39 AM Indication: Shortness of breath, history of breast cancerSOB, hx of right side breast cancer. Comparison: No comparison is available. Technique: Contiguous axial imaging of the chest performed without the administration of intravenous contrast. One or more of the following individualized dose reduction techniques were utilized for this examination: 1. Automated exposure control 2. Adjustment of the mA and/or kV according to patient size 3. Use of iterative reconstruction technique Findings: Heart size mildly enlarged. No pericardial effusion. Enlarged precarinal lymph node measures 1.1 cm short axis. There are also borderline enlarged right paratracheal lymph nodes measuring up to 1.1 cm short axis. Mild fullness of the bilateral hilum and subcarinal region. No axillary adenopathy. Thyroid gland is unremarkable. Central airways are patent. Mild diffuse bronchial wall thickening. There are 3 noncalcified pulmonary nodules in the right lower lobe on images 54, 58 and 65 that measure up to 5 mm in size each. Patchy groundglass opacity within the bilateral lower lobes, right upper lobe. Small bilateral pleural effusions. Limited images of upper abdomen unremarkable. No acute bony abnormality. Multilevel spondylosis. IMPRESSION: 1. Small noncalcified pulmonary nodules in the right lower lobe, indeterminate. Given the history of breast cancer, metastatic disease cannot be excluded. Follow-up imaging in 3-6 months recommended to ensure stability. 2. Diffuse bronchial wall thickening with patchy groundglass opacity at both lung bases, nonspecific. Consider acute or chronic bronchial inflammatory process and/or mild edema. 3. Mild mediastinal lymphadenopathy, nonspecific. 4. Small bilateral pleural effusions. TONIE SHAH MD Apr 03, 2017 10:29
[2017-04-03] MEDS: oxyCODONE/APAP 5/325 1 TAB TABLET PO PRN ×3 (10:33→20:25)
[2017-04-03] MEDS: ATORVASTATIN CALCIUM 20 MG TABLET PO SCH (20:39)
[2017-04-03] MEDS: PRAMIPEXOLE 0.5 MG TABLET. PO SCH (20:40)
[2017-04-03] MEDS: traZODone 150 MG TABLET. PO SCH (20:40)
[2017-04-04] MEDS: IPRATRPIUM/ALBUTEROL 0.5/2.5MG 3 ML NEBU. NEB SCH (05:01)
[2017-04-04 06:28] VITALS: BP 115/62
[2017-04-04] MEDS: LISINOPRIL 5 MG TABLET. PO SCH (08:48)
[2017-04-04] MEDS: ASPIRIN 81 MG TAB.CHEW PO SCH (08:48)
[2017-04-04] MEDS: GABAPENTIN 300 MG CAPSULE. PO SCH ×2 (08:48→21:00)
[2017-04-04] MEDS: PANTOPRAZOLE 40 MG TABLET. PO SCH (08:48)
[2017-04-04] MEDS: OSELTAMIVIR 75 MG CAPSULE PO SCH (08:48)
[2017-04-04] MEDS: ENOXAPARIN 30 MG/0.3 ML DISP.SYRIN. SQ SCH (08:49)
[2017-04-04 09:01] LABS: BASO % 0 % (0-3); EOS # 0.1 x10^3/uL (0.0-0.7); EOS % 1 % (0-3); HEMATOCRIT 33.7 % (36.0-47.0); HEMOGLOBIN 10.9 g/dL (12.0-15.5); LYMPH # 1.4 x10^3/uL (1.0-4.8); LYMPH % 18 % (24-48); MEAN CORPUSCULAR HEMOGLOBIN 28 pg (25-35); MEAN CORPUSCULAR HGB CONC 33 g/dL (31-37); MEAN CORPUSCULAR VOLUME 87 fL (79-100); MONO # 0.6 x10^3/uL (0.0-1.1); MONO % 8 % (0-9); NEUT # 5.4 x10^3uL (1.8-7.7); NEUT % 72 % (31-73); PLATELET COUNT 160 x10^3/uL (140-400); RED BLOOD COUNT 3.88 x10^6/uL (3.50-5.40); RED CELL DISTRIBUTION WIDTH 16.1 % (11.5-14.5); WHITE BLOOD COUNT 7.5 x10^3/uL (4.0-11.0)
[2017-04-04 09:16] LABS: CALCIUM 8.1 mg/dL (8.5-10.1); CREATININE 1.6 mg/dL (0.6-1.0); GFR 30.9; POTASSIUM 4.5 mmol/L (3.5-5.1)
[2017-04-04 13:00] VITALS: BP 126/63
[2017-04-04] MEDS: AZITHROMYCIN 250 MG TABLET. PO SCH (18:08)
[2017-04-04] MEDS: cefTRIAXone IV Push 1 GM VIAL. IVP SCH (18:09)
[2017-04-04 20:07] VITALS: BP 129/69
[2017-04-04] MEDS: traZODone 150 MG TABLET. PO SCH (21:00)
[2017-04-04] MEDS: oxyCODONE/APAP 5/325 1 TAB TABLET PO PRN (21:00)
[2017-04-04] MEDS: PRAMIPEXOLE 0.5 MG TABLET. PO SCH (21:00)
[2017-04-04] MEDS: ATORVASTATIN CALCIUM 20 MG TABLET PO SCH (21:00)
[2017-04-04 22:29] VITALS: BP 106/68
[2017-04-05 05:20] VITALS: BP 151/76
[2017-04-05 07:11] LABS: HEMATOCRIT 32.4 % (36.0-47.0); HEMOGLOBIN 10.7 g/dL (12.0-15.5); RED BLOOD COUNT 3.76 x10^6/uL (3.50-5.40); RED CELL DISTRIBUTION WIDTH 15.9 % (11.5-14.5); WHITE BLOOD COUNT 6.9 x10^3/uL (4.0-11.0)
[2017-04-05 07:30] LABS: ALBUMIN 2.8 g/dL (3.4-5.0); ALBUMIN/GLOBULIN RATIO 0.8 (1.0-1.7); CALCIUM 8.4 mg/dL (8.5-10.1); CREATININE 1.3 mg/dL (0.6-1.0); GFR 39.2; POTASSIUM 4.3 mmol/L (3.5-5.1); TOTAL BILIRUBIN 0.2 mg/dL (0.2-1.0); TOTAL PROTEIN 6.3 g/dL (6.4-8.2)
--- NOTE | 2017-04-05 08:19 | PN ---
DATE: 04/04/2017 SUBJECTIVE: The patient is resting slightly propped up in bed, continued to be tachypneic, has recurrent cough. She continued to require oxygen, although her oxygen requirement is getting less. She is now on only 1 L of oxygen, taking her oxygen saturation to 95%. Denied any chest pain. OBJECTIVE: GENERAL: When I examined her, she was somewhat pale, but no jaundice, cyanosis, lymphadenopathy or thyromegaly. No jugular venous distension. No limb edema. VITAL SIGNS: Her heart rate was 72, blood pressure 126/63, temperature was 98.3, respiratory rate was 18 and oxygen saturation was 95% on 1 liter of oxygen by nasal cannula. HEAD, EYES, EARS, NOSE, NOSE: Normocephalic, atraumatic. NECK: Supple. HEART: Showed normal first and second heart sounds with no gallop, rub or murmur. CHEST: Clear to auscultation. No crepitation or rhonchi. ABDOMEN: Distended, soft, nontender. No guarding or rigidity. No organomegaly. Hernial orifice intact. Bowel sounds normal. NEUROLOGIC: She is awake, alert, responding appropriately. Cranial nerves intact. She moves extremities without difficulty. Her intake over the last 24 hours was 1300, no output was recorded. LABORATORY DATA: Showed a white cell count to be 7500, hemoglobin 11, hematocrit 33, MCV 87, and platelet count of 160,000. Her chemistry showed a serum sodium 137, potassium 4.5, chloride 102, bicarbonate 30, anion gap of 5, BUN 21, creatinine 1.6, estimated GFR was 30 mL per minute. Her glucose was 88, calcium was 8.1. So far, her urinalysis was unremarkable. Nasal screen for MRSA by PCR was negative and influenza B was positive. RADIOLOGICAL DATA: She apparently had a chest x-ray, which showed that she has right lower lung zone opacity, ____ as pneumonia with subsegmental atelectasis, although given history of right-sided breast cancer lymphangitic carcinomatosis not ruled out. Followup imaging after medical treatment is recommended to ensure resolution. She also had a CT scan of the chest without contrast, which showed that small noncalcified pulmonary nodules in the right lower lobe, indeterminate given the history of breast cancer, metastatic disease cannot be excluded. She has also diffuse bronchial wall thickening and patchy ground glass opacities at both lung bases, nonspecific. Further acute on chronic bronchial inflammatory process and/or mild edema, mild mediastinal lymphadenopathy, nonspecific small bilateral pleural effusion. PLAN: To continue with Tamiflu. I would definitely add Rocephin and repeat all her lab work tomorrow. HILDA MEJIA MD DR: GODFREY/brenda JOB#: [id number] / [id number]
[2017-04-05] MEDS: OSELTAMIVIR 75 MG CAPSULE PO SCH (08:20)
[2017-04-05] MEDS: PANTOPRAZOLE 40 MG TABLET. PO SCH (08:21)
[2017-04-05] MEDS: GABAPENTIN 300 MG CAPSULE. PO SCH (08:21)
[2017-04-05] MEDS: ASPIRIN 81 MG TAB.CHEW PO SCH (08:21)
[2017-04-05] MEDS: LISINOPRIL 5 MG TABLET. PO SCH (08:21)
[2017-04-05] MEDS: AZITHROMYCIN 250 MG TABLET. PO SCH (08:21)
[2017-04-05] MEDS: ENOXAPARIN 30 MG/0.3 ML DISP.SYRIN. SQ SCH (08:22)
[2017-04-05] MEDS ORDERED: POLYETHYLENE GLYCOL 3350 17 GM PACKET. PO SCH (09:00)
[2017-04-05 10:40] VITALS: BP 117/72
[2017-04-05] MEDS: oxyCODONE/APAP 5/325 1 TAB TABLET PO PRN (10:48)
[2017-04-05] MEDS ORDERED: LACTOBACILLUS RHAMNOSUS GG 1 CAPSULE. PO SCH (12:00)
[2017-04-05 15:01] VITALS: BP 129/68
[2017-04-05] MEDS ORDERED: OSEL75CA PO (16:25)
[2017-04-05] MEDS ORDERED: CEFP200T PO (16:25)
[2017-04-05] MEDS ORDERED: AZIT250T PO (16:25)
[2017-04-05] MEDS: cefTRIAXone IV Push 1 GM VIAL. IVP SCH (17:29)
--- NOTE | 2017-04-06 02:24 | DS ---
DATE OF DISCHARGE: 04/05/2017 HISTORY OF PRESENT ILLNESS: The patient is an 82-year-old female patient who was admitted with basically feeling poorly, cough. She was heaving with cough and she has low grade fever and she was diagnosed with influenza B. She is known to have breast cancer, treated with partial mastectomy, radiation and anastrozole. She is no longer receiving any treatment and stated that she was told that she is in remission. She has longstanding history of chronic back pain. She is also known to have COPD, and basically, she was started on Tamiflu 75 mg once a day as she has impaired kidney function, and we started also on ceftriaxone and Zithromax. She was noted to be hypoxic and was requiring 3 liters of oxygen. Did 6-minute walk and basically she was clearly hypoxic and was discharged home on home oxygen and to continue treatment with Tamiflu, Zithromax and ceftriaxone. Her CT scan and chest x-ray, both were mentioning that there is possibility that the patient might have metastatic disease as she has small noncalcified pulmonary nodules in the right lower lobe indeterminate, and given her history of breast cancer, metastatic disease cannot be excluded. A chest x-ray also mention that the patient has right lower zone opacities, may suggest pneumonia with subsequent atelectasis, although given history of right-sided breast cancer, lymphangitic carcinomatosis cannot be ruled out. The patient was advised to follow with her oncologist after she finished treatment of antibiotic. PHYSICAL EXAMINATION: GENERAL: When I saw her today, she looked well and was clearly in no apparent respiratory distress, pale, but no jaundice, cyanosis or thyromegaly. No jugular venous distention. No limb edema. VITAL SIGNS: Her heart rate was 66, blood pressure 129/68, temperature was 98, respiratory rate 24, and oxygen saturation was 96% on 1 liter of oxygen. HEAD, EYES, EARS, NOSE AND THROAT: Showed normocephalic, atraumatic. NECK: Supple. HEART: Showed normal first and second sounds. No gallop, rub or murmur. CHEST: Shows central trachea, equally reduced expansion, decreased air entry, vesicular sounds. I could not really appreciate any crepitation or rhonchi. ABDOMEN: Distended, soft, nontender. NEUROLOGIC: She is awake, alert, responding appropriately. Cranial nerves intact. She moves extremities without difficulty. She ambulates without assistance or assistive devices. LABORATORY DATA: Her lab work this morning showed a white cell count 6900, hemoglobin 11, hematocrit 32, MCV 86 and platelet count 258,000. Her chemistry showed a serum sodium 139, potassium 4.3, chloride 104, bicarbonate 29, anion gap of 19, BUN 1.3, estimated GFR was 39 mL per minute. Her glucose was 120, calcium was 8.4. Total bilirubin, AST, ALT, alkaline phosphatase were normal. Her total protein was 6.3, albumin 2.8. DISCHARGE MEDICATIONS: She was discharged home to continue on aspirin ____ mg once a day, atorvastatin calcium 20 mg at bedtime, gabapentin 300 mg twice a day, lisinopril 20 mg at bedtime, multivitamin 1 tablet once a day, omeprazole 40 mg once a day, oxycodone/APAP 5/325 one tablet every 6 hours. She is on Mirapex 0.5 mg at bedtime, trazodone 150 mg once a day. She was also discharged on Tamiflu 75 mg once a day for 3 days, Vantin 100 mg twice a day for 7 days and Zithromax 250 mg once a day for 7 days. FINAL DISCHARGE DIAGNOSES: Influenza B, community-acquired pneumonia, acute hypoxic respiratory failure, chronic obstructive pulmonary disease exacerbation/bronchial asthma, acute kidney injury on chronic kidney disease, severe protein-calorie malnutrition. Her serum albumin is only 2.8 mg/dL. Breast cancer treated with a mastectomy, radiation treatment and anastrozole. CT scan and x-ray are suggestive of possible metastases, and therefore, we recommended the patient should follow with her oncologist after she finished antibiotic treatment. HILDA MEJIA MD DR: GODFREY/brenda JOB#: [id number] / [id number]
== END 2017-04-05 18:50 | disposition home or self-care (01) | DRG 682 ==
LOC: ER 01:22 → ICU 03:55 → 1 SOUTH 15:35
PROVIDERS: ADMIT Family Medicine; ATTEND Family Medicine
DX: N17.9 Acute kidney failure, unspecified (principal); J10.00 Influenza due to other identified influenza virus with unspecified type of pneumonia; E43 Unspecified severe protein-calorie malnutrition; J96.01 Acute respiratory failure with hypoxia; J18.9 Pneumonia, unspecified organism; J44.0 Chronic obstructive pulmonary disease with (acute) lower respiratory infection; J44.1 Chronic obstructive pulmonary disease with (acute) exacerbation; G89.29 Other chronic pain; I12.9 Hypertensive chronic kidney disease with stage 1 through stage 4 chronic kidney disease, or unspecified chronic kidney disease; K21.9 Gastro-esophageal reflux disease without esophagitis; N18.9 Chronic kidney disease, unspecified; Z85.3 Personal history of malignant neoplasm of breast; Z87.891 Personal history of nicotine dependence; Z90.710 Acquired absence of both cervix and uterus; Z88.8 Allergy status to other drugs, medicaments and biological substances; Z68.28 Body mass index [BMI] 28.0-28.9, adult; Z90.11 Acquired absence of right breast and nipple; Z92.3 Personal history of irradiation; Z90.49 Acquired absence of other specified parts of digestive tract
CPT/HCPCS: 36415; 71045; 71250; 80048; 80053; 81001; 82550; 83690; 83880; 84484; 85025; 85027; 87641; 87804; 94618; 94640; 96374; J0456; J0696; J1650; J2405; J7613; J7620; 99285-25

== ENCOUNTER → 2017-08-19 | Outpatient (CLI) | payer MEDICARE ==
[~2017-08-19] MED LIST changes: +AZIT250T PO; +BUPIVACAINE MPF 0.25% 10 ML VIAL. ONE; +CEFP200T PO; +IOHEXOL 300 MG/ML 50 ML VIAL. ONE; +LIDOCAINE 1% PF 30 ML VIAL. ONE; +OSEL75CA PO; +methylPREDNISolone ACETATE 40 MG/ML VIAL. ONE; +methylPREDNISolone ACETATE 80 MG/ML VIAL. ONE
== END ==
LOC: SURG 11:12
PROVIDERS: ATTEND Anesthesiology Pain Medicine
DX: M46.1 Sacroiliitis, not elsewhere classified (principal); M53.3 Sacrococcygeal disorders, not elsewhere classified; Z88.5 Allergy status to narcotic agent
CPT/HCPCS: G0260; J1030; J2001; J3490; Q9967; 27096; J1040

== ENCOUNTER → 2018-01-12 | Outpatient (CLI) | payer MEDICARE ==
[~2018-01-12] MED LIST changes: -ANAS1TAB3 PO; +ANAS1TAB47 PO; -BUPIVACAINE MPF 0.25% 10 ML VIAL. ONE; -IOHEXOL 300 MG/ML 50 ML VIAL. ONE; -LIDOCAINE 1% PF 30 ML VIAL. ONE; -methylPREDNISolone ACETATE 40 MG/ML VIAL. ONE; -methylPREDNISolone ACETATE 80 MG/ML VIAL. ONE
--- NOTE | 2018-01-12 18:25 | RAD ---
CT CHEST WO CONTRAST Indication: 6 MONTH LUNG NODULE F/U. HX OF RIGHT SIDE BREAST CANCER Exposure: One or more of the following individualized dose reduction techniques were utilized for this examination: 1. Automated exposure control 2. Adjustment of the mA and/or kV according to patient size 3. Use of iterative reconstruction technique. Comparison: April 03, 2017 Contrast: None FINDINGS: Vascular structures: Limited exam without contrast. Aorta mildly calcified without gross aneurysm. Aorta is ectatic. Lymph nodes: Mildly enlarged precarinal lymph nodes are stable. Thyroid gland:Visualized aspect is unremarkable. Heart: No significant pericadial effusion. Esophagus: Unremarkable Pleural spaces: No significant effusion Lungs: Small right lower lobe pulmonary nodule, image 206 is stable. The other previously seen right lower lobe nodules are no longer evident no new pulmonary mass is identified. There is some increased markings in the lower lungs, appear also on the prior study. No dense airspace consolidation. Trachea and central airways: Patent Spine: Degenerative spondylosis. Bones: No destructive process Upper abdomen: Slices obtained through the upper most abdomen are limited by the noncontrast technique. No obvious acute findings. Impression: 1. Small right lower lobe pulmonary nodule stable. The other previously seen nodules in the right lower lobe are not visualized on today's study. 2. Mild mediastinal lymph node enlargement, appears similar. 3. No new acute findings are identified. Electronically signed by: Jonatan Wilhelm MD (01/12/2018 6:22 PM) [id number]
== END | disposition home or self-care (01) ==
LOC: CT 11:47
PROVIDERS: ATTEND Radiology Radiation Oncology
DX: R91.1 Solitary pulmonary nodule (principal); R59.0 Localized enlarged lymph nodes; M47.894 Other spondylosis, thoracic region; Z85.3 Personal history of malignant neoplasm of breast
CPT/HCPCS: 71250

== ENCOUNTER → 2019-01-10 | Outpatient (CLI) | payer MEDICARE ==
[~2019-01-10] MED LIST changes: +0.9 % SODIUM CHLORIDE 10 ML VIAL ONE; +HYDR-2155 PO; +IOHEXOL 300 MG/ML 50 ML VIAL. ONE; +LIDOCAINE 1% PF 30 ML VIAL. ONE; +OMEP20CA16 PO; -OMEP20CA9 PO; +methylPREDNISolone ACETATE 80 MG/ML VIAL. ONE
[2019-01-10 11:46] VITALS: BP 129/73
== END ==
LOC: SURG 10:48
PROVIDERS: ATTEND Anesthesiology Pain Medicine
DX: M54.16 Radiculopathy, lumbar region (principal); K21.9 Gastro-esophageal reflux disease without esophagitis; Z87.39 Personal history of other diseases of the musculoskeletal system and connective tissue
CPT/HCPCS: 62323; J1040; J2001; Q9967; 62321

== ENCOUNTER → 2019-04-12 | Outpatient (CLI) | payer MEDICARE ==
[2019-01-10 11:46] VITALS: BP 129/73
[~2019-04-12] MED LIST changes: -0.9 % SODIUM CHLORIDE 10 ML VIAL ONE; -IOHEXOL 300 MG/ML 50 ML VIAL. ONE; -LIDOCAINE 1% PF 30 ML VIAL. ONE; -methylPREDNISolone ACETATE 80 MG/ML VIAL. ONE
--- NOTE | 2019-04-12 17:35 | RAD ---
PROCEDURE: SHOULDER 2+V LEFT STUDY DATE: 04/12/2019 CLINICAL INDICATION / HISTORY: Left shoulder pain. TECHNIQUE: AP internal and external rotation views with a Y- view were obtained. COMPARISON: None FINDINGS: No fracture, dislocation or bone destruction is identified. There are moderate degenerative changes at the left AC joint. Osteophytic spurring is also evident at the inferior humeral head and along the glenoid rim. No calcifications are seen in relation to the rotator cuff insertion. IMPRESSION: Degenerative changes in the left shoulder involving both the glenohumeral and acromioclavicular joints. No fracture, dislocation or aggressive osseous lesions seen. Electronically signed by: Miki Asher MD (04/12/2019 5:32 PM) [id number]
== END | disposition home or self-care (01) ==
LOC: DXRAD 16:24
PROVIDERS: ATTEND Family Medicine
DX: M19.012 Primary osteoarthritis, left shoulder (principal); M25.712 Osteophyte, left shoulder; M75.82 Other shoulder lesions, left shoulder
CPT/HCPCS: 73030

== ENCOUNTER → 2019-07-16 | Outpatient (CLI) | payer MEDICARE ==
[2019-01-10 11:46] VITALS: BP 129/73
--- NOTE | 2019-07-16 13:23 | RAD ---
EXAM: ULTRASOUND THYROID CLINICAL HISTORY: Reason: THYROID NODULE / Spl. Instructions: / History: COMPARISON: None available. TECHNIQUE: Ultrasound examination of the thyroid gland was performed FINDINGS: The right thyroid lobe measures 3.2 x 1.7 x 1.7. The left thyroid lobe 3 x 1.2 x 1.9. The thyroid isthmus measures 0.2 cm in thickness. A mixed solid and cystic 1 x 0.9 x 0.8 cm right upper pole hypoechoic nodule is seen. In addition a 0.6 x 0.4 x 0.6 cm right lower pole deep hypoechoic nodule is seen with equivocal echogenic reflector, possibly small calcification.. In addition a nondominant <0.5 cm hypoechoic nodule is seen in the lower pole the left thyroid with echogenic reflectors, likely colloid cyst. There is no regional cervical lymphadenopathy. IMPRESSION: Bilateral thyroid nodules as above, the largest is a 1 cm right upper pole thyroid nodule-Ti rads 4-follow-up ultrasound in 12 months is recommended. Electronically signed by: Lux Kent MD (07/16/2019 1:20 PM) [id number]
== END ==
LOC: US 10:26
PROVIDERS: ATTEND Family Medicine
DX: E04.1 Nontoxic single thyroid nodule (principal)
CPT/HCPCS: 76536

== ENCOUNTER → 2019-09-20 | Outpatient (CLI) | payer MEDICARE ==
[2019-01-10 11:46] VITALS: BP 129/73
--- NOTE | 2019-09-20 18:55 | RAD ---
EXAM: 3 Views Left Shoulder DATE: 09/20/2019 12:00 AM INDICATION: Reason: ACUTE PAIN OF RIGHT SHOULDER / Spl. Instructions: / History: COMPARISON: No Prior FINDINGS: There is no evidence for acute fracture or dislocation. AC joint is congruent. AC joint DJD. High riding humeral head. Glenohumeral joint degenerative changes are seen. IMPRESSION: 1. No acute fracture or dislocation. 2. Rotator cuff arthropathy. 3. AC joint DJD Electronically signed by: Lux Kent MD (09/20/2019 6:52 PM) [id number]
== END | disposition home or self-care (01) ==
LOC: DXRAD 14:36
PROVIDERS: ATTEND Physician Assistant
DX: M19.011 Primary osteoarthritis, right shoulder (principal); M75.120 Complete rotator cuff tear or rupture of unspecified shoulder, not specified as traumatic
CPT/HCPCS: 73030

== ENCOUNTER → 2020-05-05 | Outpatient (CLI) | payer MEDICARE ==
[2019-01-10 11:46] VITALS: BP 129/73
[~2020-05-05] MED LIST changes: -LISI-334 PO; +LISI20TA18 PO
--- NOTE | 2020-05-06 08:16 | RAD ---
EXAM: Cervical spine, 4 views. HISTORY: Pain. COMPARISON: None. FINDINGS: 4 views of the cervical spine are obtained. There is cervical kyphosis. There is mild anter olisthesis of C2 on C3 and C3 on C4. There is degenerative endplate remodeling with disc space narrow ing and osteophytosis at C4-C5, C5-C6 and C6-C7. There is multifocal facet and uncovertebral arthropa thy. There is a shoulder arthroplasty. There is a tiny left cervical rib. IMPRESSION: 1. Multilevel degenerative change involving the cervical spine, primarily at the mid lower cervical l evels. 2. No acute osseous finding. Electronically signed by: Martha Hebert MD (05/06/2020 8:14 AM) [id number]
== END ==
LOC: DXRAD 14:28
PROVIDERS: ATTEND Physician Assistant
DX: M47.812 Spondylosis without myelopathy or radiculopathy, cervical region (principal); M25.78 Osteophyte, vertebrae; M43.12 Spondylolisthesis, cervical region
CPT/HCPCS: 72040

== ENCOUNTER → 2020-06-20 | Outpatient (CLI) | payer MEDICARE ==
[2019-01-10 11:46] VITALS: BP 129/73
--- NOTE | 2020-06-20 11:59 | RAD ---
XR SHOULDER_LEFT 2+ VIEWS History: Nontraumatic complete tear of left rotator cuff. Comparison: 04/12/2019 Technique: 2 views the left shoulder Findings: Postsurgical features from left reverse shoulder arthroplasty. Acetabular and humeral components appe ar well seated without evidence of complication. Normal alignment. Mild degenerative changes at the a cromioclavicular joint. Soft tissues are unremarkable. Impression: 1. Left reverse shoulder arthroplasty without evidence of complication. Electronically signed by: Marbin Godwin MD (06/20/2020 11:57 AM) [facility]
== END ==
LOC: RAD 10:35
PROVIDERS: ATTEND Physician Assistant
DX: M75.102 Unspecified rotator cuff tear or rupture of left shoulder, not specified as traumatic (principal); Z96.612 Presence of left artificial shoulder joint
CPT/HCPCS: 73030

== ENCOUNTER → 2020-06-25 | Outpatient (CLI) | payer MEDICARE ==
[2019-01-10 11:46] VITALS: BP 129/73
--- NOTE | 2020-06-25 12:23 | RAD ---
EXAM: Left shoulder, 3 views. HISTORY: Pain. COMPARISON: 09/20/2019 FINDINGS: 3 views of the left shoulder obtained. There is a left shoulder arthroplasty in expected po sition. There is mild degenerative spurring involving the acromial clavicular joint. There is a tiny left cervical rib. IMPRESSION: Left shoulder arthroplasty in expected position. Electronically signed by: Martha Hebert MD (06/25/2020 12:21 PM) [id number]
== END ==
LOC: RAD 11:23
PROVIDERS: ATTEND Family Medicine
DX: M19.012 Primary osteoarthritis, left shoulder (principal); Q76.5 Cervical rib
CPT/HCPCS: 73030

== ENCOUNTER → 2020-08-07 | Outpatient (CLI) | payer MEDICARE ==
[2019-01-10 11:46] VITALS: BP 129/73
--- NOTE | 2020-08-07 09:34 | RAD ---
EXAM: RENAL ULTRASOUND CLINICAL HISTORY: Chronic kidney disease. COMPARISON: None. TECHNIQUE: Ultrasound examination of the bilateral kidneys and urinary bladder was performed. FINDINGS: The right kidney measures 9.5 cm in length and the left kidney 9.7 cm. Cortical echogenicity is relat ively normal however cortical thickness is slightly diminished and slightly more noticeable on the ri ght. No hydronephrosis on the left. Mild intrarenal collecting system prominence on the right with th e renal pelvis measuring 1.5 cm. No intrarenal stone is visualized or complex cyst/mass. No localized bladder wall thickening or layering debris. Prevoid bladder volume of approximately 26 c c. What is seen of the abdominal aorta is nonaneurysmal. Unremarkable and patent IVC at the liver. IMPRESSION: 1. Mild renal cortical thinning slightly more noticeable on the right which is nonspecific but can be seen in the setting of chronic medical renal disease. 2. Mild intrarenal collecting system dilatation on the right. No obstructing process is visualized. 3. Within normal limits urinary bladder with a volume of approximately 26 cc noting that the patient voided prior to the exam. Electronically signed by: PAUL MAYORGA MD (08/07/2020 9:32 AM) [id number]
--- NOTE | 2020-08-07 09:48 | RAD ---
STUDY: CT head and cervical spine without contrast INDICATION: Headache. Cervicalgia. Loss of balance. COMPARISON: CT head 06/24/2016 TECHNIQUE: Axial CT imaging through the head and cervical spine without the use of intravenous contra st. Sagittal and coronal reformats were obtained. One or more of the following individualized dose reduction techniques were utilized for this examinat ion: 1. Automated exposure control 2. Adjustment of the mA and/or kV according to patient size 3. Use of iterative reconstruction technique. FINDINGS: CT head: No acute intracranial hemorrhage. Moore-white matter differentiation is maintained. No localized mass effect, midline shift or hydrocephalus. Brain parenchymal volume is within normal limits for patient age. Mild carotid siphon calcific athero sclerosis. White matter findings which are nonspecific but most frequently on account of chronic micr ovascular ischemic change. Intact calvarium. Normally aerated mastoid air cells, middle ears and partially imaged paranasal sinu ses. CT cervical spine: No acute fracture or traumatic malalignment. Foci of mineralization along the ventral margin of the b ilateral C1-C2 lateral mass articulations are chronic. Degenerative remodeling of the anterior arch o f C1 and adjacent clivus formed a sort of pseudoarticulation, image 27 series 8. There is also remode ling between the tip of the dens and basion. Advanced degenerative changes across the left C1-C2 late ral masses. Less pronounced degenerative changes on the right. Degenerative cystic change within the dens in addition to prominence of the soft tissues dorsal to C2 with intermixed mineralization. Sligh t deformity of the ventral cord at the craniocervical junction without severe stenosis. Grade 1 anterolisthesis of C2 on C3 and C3 on C4. Discogenic arthrosis greatest from C4-C5 through C6 -C7. Multilevel facet arthrosis with ankylosis bilaterally at C4-C5. There is also partial fusion acr oss the C4-C5 disc space. Multilevel uncovertebral joint hypertrophy as well. Predominantly mild and moderate osseous neural foraminal stenosis collectively more pronounced on the right such as at C3-C4 and C6-C7. Central canal stenosis favored no more than mild and moderate. Carotid calcific atherosclerosis. No paraspinous edema. IMPRESSION: CT head: 1. No acute intracranial abnormality by CT. 2. Chronic/senescent observations as above. CT cervical spine: 1. No acute fracture or traumatic malalignment. 2. Advanced multilevel degenerative changes, as outlined in the body of the report, to include the c raniocervical and atlantoaxial articulations. Scattered levels with predominantly mild and moderate c entral canal and neural foraminal stenosis noting incomplete assessment by technique. Electronically signed by: PAUL MAYORGA MD (08/07/2020 9:46 AM) [id number]
== END ==
LOC: US 08:54
PROVIDERS: ATTEND Family Medicine
DX: M47.812 Spondylosis without myelopathy or radiculopathy, cervical region (principal); M48.02 Spinal stenosis, cervical region; N18.31 Chronic kidney disease, stage 3a; G44.89 Other headache syndrome
CPT/HCPCS: 70450; 72125; 76770

== ENCOUNTER 2020-09-27 15:26 | Emergency (ER) | payer MEDICARE ==
[2019-01-10 11:46] VITALS: BP 129/73
[~2020-09-27] VITALS: Ht 167.6 cm; Wt 78.9 kg
[2020-09-27] MEDS ORDERED: LIDOCAINE 1% Multi-Dose 20 ML VIAL. IJ ONE (15:45)
--- NOTE | 2020-09-27 15:52 | PHYS DOC ---
Past History Past Medical History: Cancer, Hypertension, Pneumonia, Other (ILA CARBAJAL APRN) Past Surgical History: Appendectomy, Hysterectomy, Knee Replacement, Other (ILA CARBAJAL APRN) Alcohol Use: None Drug Use: None (ILA CARBAJAL APRN) General Adult EDM: Chief Complaint: MECHANICAL FALL HPI: HPI: 85-year-old female who presents to the ER with a head laceration following a fall. Patient reports that just prior to arrival she went to stand up and her foot was asleep and she fell forward hitting her head. Patient denies any loss of consciousness or blood thinner use. Patient denies any acute neck or back pain. Patient is reporting pain to her forehead at laceration site that she rates 9 out of 10. No treatment prior to arrival. (ILA CARBAJAL APRN) Review of Systems: Review of Systems: 14 body systems of the review of systems have been reviewed. See HPI for pertinent positive and negative responses, otherwise all other systems are negative, nonpertinent or noncontributory (ILA CARBAJAL APRN) Allergies: Allergies: Allergies Coded Allergies Type Severity Reaction Last Updated Verified codeine Allergy Intermediate 08/02/14 Yes (ILA CARBAJAL APRN) Physical Exam: PE: Constitutional: Well developed, well nourished, no acute distress, non-toxic appearance. [] HENT: Normocephalic, bilateral external ears normal, oropharynx moist, no oral exudates, nose normal, 4.5 cm x 0.5 cm laceration noted to midline forehead. [] Eyes: PERRL, EOMI, conjunctiva normal, no discharge. [] Neck: Normal range of motion, no bony spinal tenderness, supple, no stridor. [] Cardiovascular:Heart rate regular rhythm, no murmur [] Lungs & Thorax: Bilateral breath sounds clear to auscultation [] Abdomen: Bowel sounds normal, soft, no tenderness, no masses, no pulsatile masses. [] Skin: Warm, dry, no erythema, no rash. [] Back: No bony spinal tenderness, normal range of motion Extremities: No tenderness, no cyanosis, no clubbing, ROM intact, no edema, no hip pain with palpation. [] Neurologic: Alert and oriented X 3, normal motor function, normal sensory function, no focal deficits noted. [] Psychologic: Affect normal, judgement normal, mood normal. [] (ILA CARBAJAL APRN) EKG: EKG: [] (ILA CARBAJAL APRN) Radiology/Procedures: Radiology/Procedures: PROCEDURE: CT HEAD AND CERVICAL SPINE WO Exam: CT head and cervical spine INDICATION: Fall TECHNIQUE: Sequential axial images through the head and cervical spine were obtained without the administration of IV contrast. Exposure: One or more of the following in the visualized dose reduction techniques were utilized for this examination: 1. Automated exposure control 2. Adjustment of the MA and/or KV according to patient size 3. Use of iterative of reconstructive technique Comparisons: None FINDINGS: Head: No focal parenchymal lesion or hemorrhage is identified. There is no midline shift or sulcal effacement. No acute vascular territory infarction is identified. Moore-white distinction is preserved. The ventricular system is within normal limits without compression hydrocephalus. The basal cisterns are well maintained. The visualized portions of the paranasal sinuses and mastoid air cells are well- pneumatized. No acute fractures. Cervical spine: Straightening of the cervical spine which may positional. Grade 1 anterolisthesis of C3 on C4. Vertebral body heights are well-maintained. Fracture to the cervical spine is not identified. No significant spondylotic change in cervical spine. Visualized paraspinal soft tissues are unremarkable. IMPRESSION: 1. No acute intracranial abnormality. 2. Negative CT C-spine for acute traumatic injury. Electronically signed by: Ros Dill MD (09/27/2020 4:35 PM) [facility] DICTATED AND SIGNED BY: ROS DILL MD DATE: 09/27/20 163 CC: TONIE SHAH MD; ILA CARBAJAL APRN ~MTH0 0 [] (ILA CARBAJAL APRN) Heart Score: C/O Chest Pain: No Risk Factors: Risk Factors: DM, Current or recent (<one month) smoker, HTN, HLP, family history of CAD, obesity. Risk Scores: Score 0 - 3: 2.5% MACE over next 6 weeks - Discharge Home Score 4 - 6: 20.3% MACE over next 6 weeks - Admit for Clinical Observation Score 7 - 10: 72.7% MACE over next 6 weeks - Early Invasive Strategies (ILA CARBAJAL APRN) Course & Med Decision Making: Course & Med Decision Making Pertinent Labs and Imaging studies reviewed. (See chart for details) Patient is an 85-year-old female being seen in the ER for a head laceration following a fall. Work-up in the ER consisted of CT scan of her head and neck and it was negative for any acute findings. Patient needed tetanus updated and this was updated in the ER. Patient's laceration repaired in the ER. Patient tolerated procedure. Patient educated on wound care and suture removal. I discussed with patient all findings and diagnostic testing as well as the need to follow-up with PCP for further evaluation and treatment or return to the ER if any new or worsening symptoms. Strict return precautions were also discussed at length. Patient voiced understanding and agreement with the plan. Patient is hemodynamically stable at the time of disposition. (ILA CARBAJAL APRN) Dragon Disclaimer: Dragon Disclaimer: This electronic medical record was generated, in whole or in part, using a voice recognition dictation system. (ILA CARBAJAL APRN) Laceration Repair Lac Repair Time: 1630 Confirmed: Patient, procedure, site, and site correct Consent: Patient has given verbal consent Laceration location: Midline forehead Shape: Linear Depth: 4 cm x 0.5 cm Details: Clean with no foreign material Neurovascular, tendon exam: Intact Anesthesia: 1% lidocaine Preparation: Sterile field established Irrigation: Wound irrigated with sterile saline and chlorhexidine wash Debridement: Skin closure: Simple interrupted sutures placed Size of suture: 5-0 Ethilon Number of sutures: 8 Complexity: Single layer Post procedure exam: Circulation, motor, sensory exam intact, bleeding controlled. Complications: None Patient tolerated: Well Performed by: self Total time: 30 minutes (ILA CARBAJAL APRN) Attending Co-Sign The patient was seen and interviewed as well as examined at the bedside. The chart was reviewed. The case was discussed. Agree with the plan of care. (ALDO WEI DO) Departure Departure: Impression: Primary Impression: Head injury Qualified Codes: S09.90XA - Unspecified injury of head, initial encounter Additional Impression: Laceration Disposition: HOME / SELF CARE / HOMELESS Condition: GOOD Referrals: TONIE SAHH MD (PCP) Patient Instructions: Head Injury, Adult, Laceration Care, Adult Additional Instructions: You were seen in the ER following a fall with a head laceration. A CT scan was performed of your head neck and it was negative for any acute findings. Your tetanus was updated. Your laceration was closed with sutures. Please keep your wound clean and dry. You can wash your laceration with warm water and mild soap. Please do not submerge your head in any water for 48 hours. You can apply bacitracin or Polysporin and keep a dressing in place. You can return to follow-up with your primary care provider in 7 to 10 days to have the sutures removed. Please monitor for any signs of infection including redness, warmth, swelling, drainage. Please follow-up with your primary care provider regarding your ER visit. If you develop any of the signs of infection, worsening of your pain, confusion, lethargy, lightheadedness/dizziness, intractable nausea or vomiting please return to the ER immediately. EMERGENCY DEPARTMENT GENERAL DISCHARGE INSTRUCTIONS Thank you for coming to [facility] (ED) today and trusting us with you care. We trust that you had a positivie experience in our Emergency Department. If you wish to speak to the department management, you may call the director at [phone]. YOUR FOLLOW UP INSTRUCTIONS ARE FOLLOWS: 1. Do you have a private Doctor? If you do not have a private doctor, please ask for a resource list of physicians or clinics that may be able to assist you with follow up care. 2. The Emergency Physician has interpreted your x-rays. The X-Ray specialist will also review them. If there is a change in the findings, you will be notified in 48 hours when at all possible. 3. A lab test or culture has been done, your results will be reviewed and you will be notified if you need a change in treatment. ADDITIONAL INSTRUCTIONS AND INFORMATION: 1. Your care today has been supervised by a physician who is specially trained in emergency care. Many problems require more than one evaluation for a complete diagnosis and treatment. We recommend that you schedule your follow up appointment as recommended to ensure complete treatment of you illness or injury. If you are unable to obtain follow up care and continue to have a problem, or if your condition worsens, we recommend that you return to the ED. 2. We are not able to safely determine your condition over the phone nor are we able to give sound medical advice over the phone. For these safety reasons, if you call for medical advice we will ask you to come to the ED for further evaluation. 3. If you have any questions regarding these discharge instructions please call the ED at [phone]. SAFETY INFORMATION: In the interest of safety, wellness, and injury prevention; we encourage you to wear your sealbelt, if you smoke; quite smoking, and we encourage family to use a protective helmet for bicycling and other sporting events that present an increased risk for head injury. IF YOUR SYMPTOMS WORSEN OR NEW SYMPTOMS DEVELOP, OR YOU HAVE CONCERNS ABOUT YOUR CONDITION; OR IF YOUR CONDITION WORSENS WHILE YOU ARE WAITING FOR YOUR FOLLOW UP APPOINTMENT; EITHER CONTACT YOUR PRIMARY CARE DOCTOR, THE PHYSICIAN WHOSE NAME AND NUMBER YOU WERE GIVEN, OR RETURN TO THE ED IMMEDIATELY. ILA CARBAJAL APRN Sep 27, 2020 15:52 ALDO WEI DO Sep 29, 2020 09:57
[2020-09-27] MEDS ORDERED: DIPH,PERTUSS(ACELL),TET VAC/PF 0.5 ML SYRINGE. VAX IM ONE (16:15)
--- NOTE | 2020-09-27 16:37 | RAD ---
Exam: CT head and cervical spine INDICATION: Fall TECHNIQUE: Sequential axial images through the head and cervical spine were obtained without the admi nistration of IV contrast. Exposure: One or more of the following in the visualized dose reduction techniques were utilized for this examination: 1. Automated exposure control 2. Adjustment of the MA and/or KV according to patient size 3. Use of iterative of reconstructive technique Comparisons: None FINDINGS: Head: No focal parenchymal lesion or hemorrhage is identified. There is no midline shift or sulcal effaceme nt. No acute vascular territory infarction is identified. Moore-white distinction is preserved. The ventricular system is within normal limits without compression hydrocephalus. The basal cisterns are well maintained. The visualized portions of the paranasal sinuses and mastoid air cells are well-pneumatized. No acute fractures. Cervical spine: Straightening of the cervical spine which may positional. Grade 1 anterolisthesis of C3 on C4. Verteb ral body heights are well-maintained. Fracture to the cervical spine is not identified. No significant spondylotic change in cervical spine. Visualized paraspinal soft tissues are unremarkable. IMPRESSION: 1. No acute intracranial abnormality. 2. Negative CT C-spine for acute traumatic injury. Electronically signed by: Ros Alicia MD (09/27/2020 4:35 PM) [facility]
[2020-09-27] MEDS ORDERED: ACETAMINOPHEN 325 MG TABLET PO ONE (17:30)
== END 2020-09-27 17:28 | disposition home or self-care (01) ==
LOC: ER 15:26
DX: S01.81XA Laceration without foreign body of other part of head, initial encounter (principal); I10 Essential (primary) hypertension; Z88.5 Allergy status to narcotic agent; W18.09XA Striking against other object with subsequent fall, initial encounter; Y93.89 Activity, other specified; Y92.89 Other specified places as the place of occurrence of the external cause; Y99.8 Other external cause status
CPT/HCPCS: 12013; 70450; 72125; 90471; 90715; 99285

== ENCOUNTER → 2020-10-30 | Outpatient (CLI) | payer MEDICARE ==
[2020-09-27 16:01] VITALS: BP 113/78
--- NOTE | 2020-10-30 16:55 | RAD ---
XR CHEST 2V History: Reason: COUGH / Spl. Instructions: / History: Comparison: April 03, 2017 Findings: Mild ill-defined bibasilar opacities. No pleural effusion. No pneumothorax. Normal heart size.. Left shoulder arthroplasty. Prior granulomatous disease within the chest. Impression: 1. Mild ill-defined bibasilar opacities, most likely atelectasis. If persistent clinical concern, re commend follow-up. Electronically signed by: Sherif Hernandez DO (10/30/2020 4:53 PM) [id number]
== END ==
LOC: RAD 11:32
PROVIDERS: ATTEND Family Medicine
DX: R91.8 Other nonspecific abnormal finding of lung field (principal)
CPT/HCPCS: 71046

== ENCOUNTER → 2021-02-24 | Outpatient (CLI) | payer MEDICARE ==
[2020-09-27 16:01] VITALS: BP 113/78
--- NOTE | 2021-02-24 17:38 | RAD ---
Study: XR SHOULDER_RIGHT 2+ VIEWS Indication: Shoulder pain. No known injury. Comparison: 09/20/2019 Findings: Moderate arthrosis at the acromioclavicular joint and mild/moderate at the glenohumeral joint. Narrow ing of the acromiohumeral interval with humeral head abutment of the acromial undersurface. No acute fracture. Osteopenia. Aortic calcific atherosclerosis. Impression: As was also the case on the 2019 comparison, high riding humeral head in keeping with chronic rotator cuff insufficiency. Background arthrosis without significant progression which is moderate at the AC joint and mild/moderate at the glenohumeral joint. Electronically signed by: PAUL MAYORGA MD (02/24/2021 5:36 PM) [facility]
== END ==
LOC: RAD 12:45
PROVIDERS: ATTEND Anesthesiology
DX: M19.011 Primary osteoarthritis, right shoulder (principal); M85.88 Other specified disorders of bone density and structure, other site; I70.0 Atherosclerosis of aorta
CPT/HCPCS: 73030

== ENCOUNTER → 2021-03-05 | Outpatient (CLI) | payer MEDICARE ==
[2020-09-27 16:01] VITALS: BP 113/78
--- NOTE | 2021-03-05 12:39 | RAD ---
EXAM: Bilateral hands, 3 views. HISTORY: Pain. COMPARISON: None. FINDINGS: Left hand: 3 views of the left hand are obtained. There is left radiocarpal joint space narrowing and widening of the left scapholunate joint space. There is left first metacarpal metacarpal, fourth pro ximal interphalangeal and third and fifth distal interphalangeal joint space narrowing, subchondral s clerosis and spurring due to osteoarthritis. There are lesser degrees of osteoarthritis involving the third metacarpal phalangeal joint, second proximal interphalangeal joint and fourth distal interphal angeal joint. There is chondrocalcinosis involving the triangular fibrocartilage complex. There is no fracture, dislocation or subluxation. Right hand: 3 views the right hand are obtained. There is mild first metacarpal metacarpal joint spac e narrowing and spurring. There is severe fourth proximal and interphalangeal joint space narrowing a nd spurring, moderate fifth distal and phalangeal joint spurring and mild third distal interphalangea l joint space narrowing. There is also narrowing of the second metacarpal phalangeal joint. There is chondrocalcinosis involving the wrist. There is no fracture, dislocation or subluxation. IMPRESSION: 1. Mild widening of the left scapholunate joint space. This can be seen with scapholunate ligament pa thology and better assessed with MRI. 2. 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 This is most sev ere involving the left third distal individual joint and fourth proximal interphalangeal joint and ri ght fourth proximal and distal interphalangeal joints. There is associated soft tissue swelling surro unding these joints. 3. Bilateral wrist chondrocalcinosis. Electronically signed by: Martha Hebert MD (03/05/2021 12:36 PM) [id number]
== END ==
LOC: RAD 12:04
PROVIDERS: ATTEND Internal Medicine Rheumatology
DX: M19.041 Primary osteoarthritis, right hand (principal); M19.042 Primary osteoarthritis, left hand; M11.232 Other chondrocalcinosis, left wrist; M11.231 Other chondrocalcinosis, right wrist; M79.89 Other specified soft tissue disorders
CPT/HCPCS: 73130-50

== ENCOUNTER → 2021-04-07 | Outpatient (CLI) | payer MEDICARE ==
[2020-09-27 16:01] VITALS: BP 113/78
--- NOTE | 2021-04-08 09:47 | RAD ---
US THYROID History: Reason: NODULE / Spl. Instructions: / History: Comparison: July 16, 2019 Technique: Multiple grayscale and color Doppler images of the thyroid gland were obtained. Findings: Right thyroid lobe: 3.4 x 1.7 x 1.6 cm. Homogeneous echotexture. Left thyroid lobe: 3.2 x 1.1 x 1.1 cm. Homogeneous echotexture. Isthmus: 0.2 cm. -Decreased right superior lateral nodule measures 0.8 x 0.4 cm with decreased cystic component previo usly. Persistent echogenic foci. TI-RADS 4. Increased right inferior mixed cystic and solid nodule measures 0.7 x 0.6 x 0.7 cm. TI-RADS 2. Left inferior thyroid cyst measures 0.4 x 0.5 x 0.4 cm. TI-RADS 1. ACR Thyroid Imaging, Reporting And Data System (TI-RADS): White Paper Of The ACR TI-RADS Committee. J ournal of the [employer], volume 14, issue 5, pages 587-595 (June 2016). IMPRESSION: 1. Decreased TI-RADS 4 right superior thyroid nodule. 2. Additional thyroid cystic nodules. Electronically signed by: Sherif Hernandez DO (04/08/2021 9:44 AM) [id number]
== END ==
LOC: US 13:12
PROVIDERS: ATTEND Family Medicine
DX: E04.2 Nontoxic multinodular goiter (principal)
CPT/HCPCS: 76536